=== PATIENT | female | born 1965 | race Two or more races ===

== ENCOUNTER 2023-07-25 18:38 | Emergency (ER) | payer BC, OTHER ==
[~2023-07-25] VITALS: Ht 167.6 cm; Wt 57.8 kg
[2023-07-25 18:49] VITALS: BP 128/88; PULSE 103; RESP 18; TEMP 98.9
[2023-07-25 21:21] VITALS: O2SAT 97
[2023-07-25] MEDS: diphenhdrAMINE HCL 50 MG/1 ML VL IM ONE (21:30)
[2023-07-25] MEDS: METOCLOPRAMIDE HCL 5MG/ml INJ 2ml VIAL IM ONE (21:33)
[2023-07-25] MEDS: KETOROLAC TROMETH 30 MG/ML 1ML VIAL IM ONE (21:34)
[2023-07-25 22:43] LABS: Basophils # (auto) 0 10 ^3/uL (0-0.2); Basophils % (auto) 0.6 % (0.0-2.0); Eosinophils # (auto) 0.1 10 ^3/uL (0-0.8); Eosinophils % (auto) 1.4 % (0.0-7.0); Hematocrit 34.8 % (36.0-46.0); Hemoglobin 11.5 g/dL (12.2-16.2); Lymphocytes # (auto) 2.3 10 ^3/uL (0.4-5.4); Lymphocytes % (auto) 27.5 % (10.0-50.0); Mean Corpuscular Hemoglobin 28.8 pg (28.0-32.0); Mean Corpuscular Hgb Conc. 33.1 g/dL (32.0-36.0); Mean Corpuscular Volume 86.8 fL (80.0-100.0); Monocytes # (auto) 0.7 10 ^3/uL (0-1.3); Monocytes % (auto) 8.5 % (0.0-12.0); Neutrophils # (auto) 5.1 10 ^3/uL (1.6-8.6); Nucleated Red Blood Cells % 0.1 %; Red Blood Cells 4.01 10^6/uL (4.0-5.20); Red Cell Distribution Width 12.9 % (11.8-14.3); White Blood Cell 8.3 10^3/uL (4.4-10.8)
[2023-07-25 22:49] LABS: Erythrocyte Sedimentation Rate 62 mm/hr (0-20)
[2023-07-25] MEDS ORDERED: PRED20TA2 PO (23:11)
[2023-07-25] MEDS: predniSONE 20 MG TAB PO ONE (23:37)
== END 2023-07-25 23:41 | disposition home or self-care (01) ==
LOC: ER 18:38
DX: M31.6 Other giant cell arteritis (principal); D64.9 Anemia, unspecified
CPT/HCPCS: 36415; 70450; 85025; 85652; 86141; 96372; 99285; J1200; J1885; J2765; J7512